=== PATIENT | male | born 1985 | race African-American/Black ===

== ENCOUNTER 2017-03-03 06:48 | Emergency (ER) | payer MEDICAID ==
[2017-03-03 07:17] LABS: BASOPHILS 0.1 % (0-2); EOSINOPHILS 2.7 % (0-7); HEMATOCRIT 46.4 % (42.0-54.0); HEMOGLOBIN 15.4 g/dL (13.5-17.5); IMMATURE GRANULOCYTES 0.1 % (0-5); LYMPHOCYTES 35.7 % (15-50); MCH 30.8 pg (26.0-34.0); MCHC 33.2 g/dL (31.0-37.0); MCV 92.8 fL (80.0-100.0); MEAN PLATELET VOLUME 9.3 fL (7.4-10.4); MONOCYTES 8.5 % (2-11); NEUTROPHILS 52.9 % (40-80); PLATELET COUNT 178 10x3/uL (130-400); RDW 13.8 % (11.5-14.5); WBC 8.5 10x3/uL (4.8-10.8)
[2017-03-03 07:23] LABS: APPEARANCE SLT CLOUDY (CLEAR); BILIRUBIN NEGATIVE (NEGATIVE); COLOR YELLOW (YELLOW); GLUCOSE NEGATIVE (NEGATIVE); KETONE NEGATIVE (NEGATIVE); LEUKOCYTE ESTERASE TRACE (NEGATIVE); NITRITE NEGATIVE (NEGATIVE); PROTEIN NEGATIVE (NEGATIVE); RED CELLS - URINE 25-50 /hpf (0-5); SPECIFIC GRAVITY 1.025 (1.005-1.020); UROBILINOGEN NORMAL (NORMAL)
[2017-03-03 07:24] LABS: BACTERIA MODERATE /hpf (NONE SEEN); CALCIUM OXALATE CRYSTALS 0-5 /hpf (NONE SEEN); MUCUS >1+ /lpf (NONE SEEN)
[2017-03-03 07:33] LABS: ALBUMIN 3.8 g/dL (3.4-5.0); ANION GAP 9.8 mmol/L (8-16); BILIRUBIN - TOTAL 0.23 mg/dL (0.2-1.3); CALCIUM 9.1 mg/dL (8.5-10.1); CARBON DIOXIDE 29.4 mmol/L (21.0-32.0); CREATININE - SERUM 1.2 mg/dL (0.6-1.3); POTASSIUM - SERUM 4.2 mmol/L (3.5-5.1); PROTEIN - SERUM 7.5 g/dL (6.4-8.2)
[2017-03-03 07:37] LABS: MAGNESIUM - SERUM 2.1 mg/dL (1.8-2.4)
[2017-03-03 09:10] LABS: UDS - AMPHET NEGATIVE QUAL (NEGATIVE); UDS - BARB NEGATIVE QUAL (NEGATIVE); UDS - BENZO POSITIVE QUAL (NEGATIVE); UDS - COCAINE NEGATIVE QUAL (NEGATIVE); UDS - METH NEGATIVE QUAL (NEGATIVE); UDS - OPIATE NEGATIVE QUAL (NEGATIVE); UDS - PCP NEGATIVE QUAL (NEGATIVE); UDS - THC POSITIVE QUAL (NEGATIVE)
== END 2017-03-03 09:15 | disposition home or self-care (01) ==
LOC: D.ER 06:48
PROVIDERS: Emergency Medicine
DX: R11.10 Vomiting, unspecified (principal); R10.9 Unspecified abdominal pain; N39.0 Urinary tract infection, site not specified; R31.9 Hematuria, unspecified; I10 Essential (primary) hypertension; F17.200 Nicotine dependence, unspecified, uncomplicated

== ENCOUNTER 2017-03-12 17:44 | Emergency (ER) | payer MEDICAID | END 2017-03-12 19:30 | disposition home or self-care (01) | LOC: D.ER 17:44 | DX: F41.9 Anxiety disorder, unspecified (principal); F32.9 Major depressive disorder, single episode, unspecified; F17.200 Nicotine dependence, unspecified, uncomplicated; I10 Essential (primary) hypertension ==

== ENCOUNTER 2017-05-22 05:16 | Emergency (ER) | payer SELFPAY | END 2017-05-22 06:00 | disposition home or self-care (01) | LOC: D.ER 05:16 | DX: J06.9 Acute upper respiratory infection, unspecified (principal); I10 Essential (primary) hypertension; F17.200 Nicotine dependence, unspecified, uncomplicated; R50.9 Fever, unspecified ==

== ENCOUNTER 2017-08-31 10:23 | Emergency (ER) | payer MEDICAID | END 2017-08-31 12:17 | disposition home or self-care (01) | LOC: D.ER 10:23 | DX: S05.01XA Injury of conjunctiva and corneal abrasion without foreign body, right eye, initial encounter (principal); X58.XXXA Exposure to other specified factors, initial encounter; Y93.89 Activity, other specified; Y92.89 Other specified places as the place of occurrence of the external cause; I10 Essential (primary) hypertension ==

== ENCOUNTER 2018-01-21 08:09 | Emergency (ER) | payer SELFPAY ==
[2018-01-21 09:09] LABS: ALBUMIN 3.7 g/dL (3.4-5.0); ALKALINE PHOSPHATASE 61 U/L (46-116); ALT (SGPT) 30 U/L (10-68); BILIRUBIN - TOTAL 0.38 mg/dL (0.2-1.3); CALC OSMOLALITY 283 mosm/kg (275-300); CALCIUM 8.7 mg/dL (8.5-10.1); CARBON DIOXIDE 28.7 mmol/L (21.0-32.0); CHLORIDE - SERUM 105 mmol/L (98-107); CREATININE - SERUM 1.1 mg/dL (0.6-1.3); GLUCOSE 92 mg/dL (74-106); PROTEIN - SERUM 7.4 g/dL (6.4-8.2); SODIUM 142 mmol/L (136-145); UREA NITROGEN 16 mg/dL (7-18); eGFR NON AFRICAN AMERICAN 81 mL/min (90-120)
[2018-01-21 09:13] LABS: TROPONIN-I < 0.017 ng/mL (0.000-0.060)
[2018-01-21 09:31] LABS: BASOPHILS 0.1 % (0-2); EOSINOPHILS 2.4 % (0-7); HEMATOCRIT 48.1 % (42.0-54.0); HEMOGLOBIN 16.3 g/dL (13.5-17.5); IMMATURE GRANULOCYTES 0.1 % (0-5); LYMPHOCYTES 40.5 % (15-50); MCHC 33.9 g/dL (31.0-37.0); MCV 91.4 fL (80.0-100.0); MEAN PLATELET VOLUME 9.5 fL (7.4-10.4); MONOCYTES 7.8 % (2-11); NEUTROPHILS 49.1 % (40-80); PLATELET COUNT 169 10x3/uL (130-400); RBC 5.26 10x6/uL (4.20-6.10); RDW 13.3 % (11.5-14.5); WBC 6.9 10x3/uL (4.8-10.8)
[2018-01-21 09:34] LABS: UDS - AMPHET NEGATIVE QUAL (NEGATIVE); UDS - BARB NEGATIVE QUAL (NEGATIVE); UDS - BENZO NEGATIVE QUAL (NEGATIVE); UDS - COCAINE NEGATIVE QUAL (NEGATIVE); UDS - OPIATE NEGATIVE QUAL (NEGATIVE); UDS - PCP NEGATIVE QUAL (NEGATIVE); UDS - THC POSITIVE QUAL (NEGATIVE)
== END 2018-01-21 10:35 | disposition home or self-care (01) ==
LOC: D.ER 08:09
PROVIDERS: Emergency Medicine
DX: R07.89 Other chest pain (principal); I10 Essential (primary) hypertension; F17.200 Nicotine dependence, unspecified, uncomplicated; R00.1 Bradycardia, unspecified

== ENCOUNTER 2019-04-15 13:22 | Observation (INO) | payer OTHER ==
[~2019-04-15] VITALS: Ht 188 cm; Wt 71.8 kg
--- NOTE | ~2019-04-15 | EC ---
PATIENT:CHANCE PEDRAZA DATE OF SERVICE: 04/15/19 SEX: M MEDICAL RECORD: [id number] DATE OF : [birth year] LOCATION:D.M2 D.211 AGE OF PATIENT: 33 ADMISSION DATE: 04/15/19 REFERRING PHYSICIAN: INTERPRETING PHYSICIAN: ANGEL REY MD ECHOCARDIOGRAM REPORT ECHO CHARGES 4 ECHO COMPLETE Date: 04/15/19 CLINICAL DIAGNOSIS: CP ECHOCARDIOGRAPHIC MEASUREMENTS (adult normal given) AC root (d.<3.7cm) 3.3 cm LV Septum d (<1.2 cm> 1.2 cm Valve Excursion 2.4 cm LV Septum (systole) 1.7 cm Left Atria (s.<4.0cm> 3.2 cm LVPW d(<1.2cm) 1.1 cm RV (d.<2.3cm) 2.3 cm LVPW (sytole) 2.3 cm LV diastole(<5.6CM) 4.9 cm MV E-F(>70mm/sec) cm LV systole 2.5 cm LVOT Diameter 2.2 cm MV exc.(>10mm) cm Est.ejection fraction (50-75%) % DOPPLER: LVIT cm/sec A 41.0 cm/sec E 83.0 cm/sec LA cm/sec RVSP 29.3 mmHg LVOT 94.0 cm/sec AOP1/2T m/s Asc. Ao 132 cm/sec RVOT 83.0 cm/sec RA cm/sec PA 87.0 cm/sec AV Gradient Peak 7.0 mmHg AV Mean 3.6 mmHg AV Area 2.0 cm MV Gradient Peak 5.1 mmHg MV Mean 1.5 mmHg MV Area cm COMMENTS: Head Of [employer]: Zaid MONTEJOOE Dragger: 1 Dr. Rey TAPE# PACS Pericardial Effusion Y DATE OF SERVICE: 04/15/2019 FINDINGS: 1. Left ventricular chamber size is within normal limits. Left ventricular systolic function is normal. Overall ejection fraction is estimated at 60%. 2. Left atrium is within normal limits at 3.2 cm. Right atrium and right ventricular chamber sizes are mildly dilated. 3. Valvular structures have normal structure and motion. 4. Doppler interrogation reveals trace mitral regurgitation and moderate tricuspid regurgitation. No other valvular insufficiency or stenosis. ECHOCARDIOGRAM REPORT [id number] CHANCE PEDRAZA Pulmonary systolic pressure is estimated at 29 mmHg. 5. Small pericardial effusion is present. This is not hemodynamically significant. No evidence of left ventricular thrombus. TRANSINT:[id number] Voice Confirmation ID: [id number] DOCUMENT ID: [id number] ANGEL REY MD CC: [id number] DICTATION DATE: 04/15/191740 MILITARY PILOT: 04/15/192004 DIS IN 04/15/19 [facility] [address] [id number]
--- NOTE | ~2019-04-15 | HP ---
PATIENT: CHANCE PEDRAZA MEDICAL RECORD: [id number] ACCOUNT: [id number] LOCATION:[address] : [birth year] ADMISSION DATE: 04/15/19 PCP: No PCP HISTORY AND PHYSICAL EXAMINATION DIAGNOSES: 1. Chest pain. 2. Pericarditis. 3. Abnormal ECG. HISTORY OF PRESENT ILLNESS: Mr. Pedraza presents with sharp atypical chest pain; however, his echo does show thickened pericardium and small pericardial effusion that is not hemodynamically significant. He has recently had an upper respiratory viral illness that he got from his girlfriend. Since then, he has been having some episodes of chest discomfort. His EKG does have LVH versus diffuse ST elevation, compatible with pericarditis. PHYSICAL EXAMINATION: GENERAL APPEARANCE: Well-nourished, well-developed, appears stated age. Level of distress, comfortable. PSYCHIATRIC: Mental status, alert, normal affect. Orientation, oriented to time, place and person. EYES: Lids and conjunctiva, noninjected. No discharge, no pallor. ENT: Lips, teeth, gums, normal dentition. Oropharynx, no cyanosis, no pallor. NECK: Carotid arteries, bilateral normal upstroke, no bruits, no thrills. JUGULAR VEINS: No jugular venous pressure or distention. CERVICAL LYMPH NODES: Nontender, nonenlarged. THYROID: Not enlarged. Nontender. No nodules. LUNGS: Respiratory effort, unlabored. CHEST: Normal curvature. No thoracic deformity. No chest wall tenderness. Percussion, resonant. Auscultation, clear. No wheezes, no rales, no rhonchi. CARDIOVASCULAR: Precordial exam, nondisplaced. No heaves or pericardial thrills. Rate and rhythm, regular. Heart sounds, normal S1, normal S2. No S3, no gallop, no rub. Systolic murmur, not heard. Diastolic murmur, not heard. EXTREMITIES: No cyanosis, no edema. Peripheral pulses, full and equal in all extremities, except as noted. No bruits appreciated. ABDOMEN: Soft, nondistended. Normal aorta. No bruit. Nontender. No masses. Liver, nontender, no hepatomegaly. Spleen, nontender, no splenomegaly. MUSCULOSKELETAL: No joint tenderness. No joint swelling. No erythema. NEUROLOGICAL: Normal gait, normal strength, normal tone. SKIN: Warm and dry. OVERALL IMPRESSION: Chest pain. This is not ischemic heart disease in nature. This is most likely pericarditis from his upper respiratory tract infection. We will treat him with nonsteroidal anti-inflammatories. Suggest Motrin 400 mg t.i.d. for at least a week. If he continues to have the discomfort, could consider steroids as an outpatient. TRANSINT:[id number] Voice Confirmation ID: [id number] DOCUMENT ID: [id number] HISTORY AND PHYSICAL [id number] CHANCE PEDRAZA JEFFREY MD CC: [id number] DICTATION DATE: 04/15/191758 FILL TECHNICIAN: 04/15/19 190 DIS IN 04/15/[address] [facility] [address] [place] [address]
--- NOTE | ~2019-04-15 | DS ---
PATIENT:CHANCE PEDRAZA :81 MEDICAL RECORD: [id number] DISCHARGE SUMMARY ADMISSION DATE: 04/15/19 DISCHARGE DATE: 04/15/19 DISCHARGE DIAGNOSES: 1. Pericarditis. 2. Chest pain. 3. Abnormal ECG. HOSPITAL COURSE: Mr. Pedraza presents with chest pain. His EKG and echo are compatible with pericarditis. He received 1 dose of Solu-Medrol. He will be discharged home with the instructions of Advil 400 mg t.i.d. times 1 week. TRANSINT:[id number] Voice Confirmation ID: [id number] DOCUMENT ID: [id number] ANGEL MONTES DE OCA MD CC: [id number] DICTATION DATE: 04/15/191801 PROJECT ADMINISTRATOR: 04/16/19 0339 DIS IN 04/15/19 [id number] [place] [address]
[2019-04-15 13:49] LABS: BASOPHILS 0.1 % (0-2); EOSINOPHILS 0.4 % (0-7); HEMATOCRIT 40.5 % (42.0-54.0); HEMOGLOBIN 13.9 g/dL (13.5-17.5); IMMATURE GRANULOCYTES 0.1 % (0-5); LYMPHOCYTES 13.8 % (15-50); MCH 30.3 pg (26.0-34.0); MCHC 34.3 g/dL (31.0-37.0); MCV 88.2 fL (80.0-100.0); MEAN PLATELET VOLUME 9.3 fL (7.4-10.4); NEUTROPHILS 81.6 % (40-80); PLATELET COUNT 176 10x3/uL (130-400); RBC 4.59 10x6/uL (4.20-6.10); RDW 13.9 % (11.5-14.5); WBC 7.4 10x3/uL (4.8-10.8)
[2019-04-15 14:10] VITALS: BP 143/89
[2019-04-15 14:15] LABS: APTT 29.9 SECONDS (22.8-39.4); INR 1.07 (0.85-1.17); PROTIME 13.4 SECONDS (11.6-15.0)
[2019-04-15 14:19] LABS: ALBUMIN 3.8 g/dL (3.4-5.0); ALKALINE PHOSPHATASE 73 U/L (46-116); ALT (SGPT) 23 U/L (10-68); BILIRUBIN - TOTAL 0.24 mg/dL (0.2-1.3); CALC OSMOLALITY 281 mosm/kg (275-300); CALCIUM 8.6 mg/dL (8.5-10.1); CARBON DIOXIDE 27.3 mmol/L (21.0-32.0); CHLORIDE - SERUM 107 mmol/L (98-107); CREATININE - SERUM 1.1 mg/dL (0.6-1.3); GLUCOSE 118 mg/dL (74-106); PROTEIN - SERUM 7.2 g/dL (6.4-8.2); SODIUM 140 mmol/L (136-145); UREA NITROGEN 17 mg/dL (7-18); eGFR NON AFRICAN AMERICAN 81 mL/min (90-120)
[2019-04-15 14:27] VITALS: BP 143/88
[2019-04-15 14:29] LABS: CKMB 1.6 U/L (0.0-3.6); CREATINE KINASE 211 UL (21-232); MAGNESIUM - SERUM 1.6 mg/dL (1.8-2.4); TROPONIN-I < 0.017 ng/mL (0.000-0.060)
[2019-04-15 14:30] VITALS: BP 151/90
--- NOTE | 2019-04-15 15:25 | NUR ---
TRANSFER FROM ER BY W/C. ELIJAHINTED TO ROOM. CALL LIGHT IN REACH. WILL CONT. PLAN OF CARE.
--- NOTE | 2019-04-15 15:30 | NUR ---
RECEIVED VIA W/C TO ROOM 2115. A/A/OX4. DENIES ANY PAIN AT PRESENT TIME AND NO REQUESTS VOICED. MONITOR PLACE ON PT AND SHOW NSR. NO HOME MED TO RECONCILE.
[2019-04-15 16:01] VITALS: BP 131/80; Ht 188 cm; Wt 71.8 kg
--- NOTE | 2019-04-15 17:10 | NUR ---
DR RAMOS NOTIFIED AND REVIEWED PATIENT'S BEHAVIOR AND ASSESSMENT RESULTS. PT IS A LOW RISK PER DR RAMOS. DR RAMOS STATED TO GIVE RESOURCES TO PATIENT AT TIME OF DISCHARGE. NO FURTHER ORDERS AT THIS TIME. RESOURCES REVIEWED WITH PATIENT AND HE VERBALIZED UNDERSTANDING.
--- NOTE | 2019-04-15 18:44 | NUR ---
DISCHARGE INSTRUCTIONS REVIEWED WITH PT AND VERBALIZES UNDERSTANDING WITH NO QUESTIONS. IV DC'D WITH CATH TIP INTACT. LEFT FLOOR VIA W/C WITH ALL PERSONAL BELONGINGS. LEFT FACILITY VIA PRIVATE VEHICLE WITH A FRIEND.
== END 2019-04-15 18:51 | disposition home or self-care (01) ==
LOC: OBSVTIME → D.ER 13:22 → OBSVTIME 14:23 → D.EDHOLD 14:23 → OBSVTIME 15:04 → D.M2 15:04
PROVIDERS: Family Medicine; ADMIT Internal Medicine Interventional Cardiology; ATTEND Internal Medicine Interventional Cardiology
DX: I31.9 Disease of pericardium, unspecified (principal); R07.9 Chest pain, unspecified; R94.31 Abnormal electrocardiogram [ECG] [EKG]